=== PATIENT | female | born 1990 | race Two or more races ===

== ENCOUNTER 2023-03-17 18:08 | Emergency (ER) | payer OTHER ==
[~2023-03-17] VITALS: Ht 162.6 cm; Wt 77.1 kg
[2023-03-17] MEDS ORDERED: MAG HYDROX/ALUMINUM HYD/SIMETH 30 ML BLIST.PACK PO ONE (19:00)
[2023-03-17] MEDS ORDERED: FAMOTIDINE/PF 20 MG/2 ML VIAL IV PUSH ONE (19:00)
[2023-03-17 19:29] LABS: URINE APPEARANCE Cloudy; URINE BILIRRUBIN Negative (NEGATIVE); URINE BLOOD Negative; URINE COLOR Yellow; URINE GLUCOSE Negative (NEGATIVE); URINE LEUKOCYTE Large; URINE NITRATE Negative; URINE PROTEIN Negative (NEGATIVE)
[2023-03-17 19:29] LABS: HEMATOCRIT 37.4 % (36.0-45.00); HEMOGLOBIN 12.4 g/dL (12.0-15.00); MEAN CELL VOLUME 85.6 fL (80.00-100.00); MEAN CORPUSCULAR HEMOGLOBIN 28.4 pg (27.00-32.0); MEAN CORPUSCULAR HGB CONC 33.2 g/dl (32.0-36.0); PLATELET COUNT 217 K/uL (150-450); RED BLOOD COUNT 4.37 M/uL (4.00-6.00); RED CELL DISTRIBUTION WIDTH 12.4 % (11.5-14.5)
[2023-03-17 19:32] LABS: URINE BACTERIA 2561.5 uL (0.0-1933); URINE EPITHELIAL CELLS 87.9 uL (0.0-38.8); URINE RBC 8.9 uL (0.0-20.8); URINE WBC 64.7 uL (0.0-23.2)
[2023-03-17 19:50] LABS: ALBUMIN 3.7 gm/dL (3.4-5.0); BILIRUBIN TOTAL 0.32 mg/dL (0.3-1.2); CREATININE SERUM 0.7 mg/dL (0.55-1.02); GFR 98.25; GLOBULINA 4.1 G/DL (2.4-3.5); POTASSIUM 4.78 mEq/L (3.5-5.1); TOTAL PROTEIN 7.8 gm/dL (6.4-8.2)
== END 2023-03-18 00:59 | disposition home or self-care (01) ==
LOC: ER 18:08
PROVIDERS: Emergency Medicine
DX: K29.70 Gastritis, unspecified, without bleeding (principal); K21.9 Gastro-esophageal reflux disease without esophagitis